=== PATIENT | female | born 1980 | race African-American/Black ===

== ENCOUNTER 2017-06-18 16:03 | Emergency (ER) | payer OTHER ==
[~2017-06-18] VITALS: Ht 177.8 cm; Wt 133.2 kg
[~2017-06-18 16:03] MED LIST: DSS100 PO; PERCT PO
[2017-06-18] MEDS ORDERED: METHOCARBAMOL 500 MG TABLET PO ONE (19:30)
[2017-06-18] MEDS ORDERED: ACETAMINOPHEN/CODEINE 300-30 MG TABLET PO ONE (19:30)
[2017-06-18 20:37] VITALS: BP 141/79
== END 2017-06-18 21:04 | disposition home or self-care (01) ==
LOC: EMS 16:06
DX: S29.012A Strain of muscle and tendon of back wall of thorax, initial encounter (principal); M79.641 Pain in right hand; I10 Essential (primary) hypertension; F17.210 Nicotine dependence, cigarettes, uncomplicated; Z91.011 Allergy to milk products; Z88.6 Allergy status to analgesic agent; Z88.8 Allergy status to other drugs, medicaments and biological substances; X58.XXXA Exposure to other specified factors, initial encounter; Y93.89 Activity, other specified; Y92.89 Other specified places as the place of occurrence of the external cause; Y99.8 Other external cause status
CPT/HCPCS: 99283

== ENCOUNTER 2018-10-20 18:37 | Emergency (ER) | payer MEDICAID, OTHER ==
[~2018-10-20] VITALS: Ht 177.8 cm; Wt 162.5 kg
[2018-10-20] MEDS ORDERED: PROPARACAINE HCL 0.5% 15 ML OPHTHALMIC SOLUTION OS ONE (20:15)
[2018-10-20 21:06] VITALS: BP 134/84
== END 2018-10-20 21:00 | disposition home or self-care (01) ==
LOC: EMS 18:39
DX: H10.89 Other conjunctivitis (principal); B99.9 Unspecified infectious disease; I10 Essential (primary) hypertension; F17.210 Nicotine dependence, cigarettes, uncomplicated; Z88.6 Allergy status to analgesic agent; Z79.899 Other long term (current) drug therapy; Z91.011 Allergy to milk products

== ENCOUNTER 2018-12-25 10:30 | Emergency (ER) | payer MEDICAID ==
[~2018-12-25] VITALS: Ht 177.8 cm; Wt 156.8 kg
[2018-12-25] MEDS ORDERED: ATEN50TA PO (10:37)
[2018-12-25 11:56] LABS: BASOPHILS % (AUTO) 0.3 % (0.0-2.0); EOSINOPHILS % (AUTO) 3.2 % (1.0-6.0); HEMATOCRIT 30.6 % (36-46); HEMOGLOBIN 9.6 g/dL (12.0-16.0); LYMPHOCYTES # (AUTO) 1.7 K/uL (1.0-4.8); LYMPHOCYTES % (AUTO) 24.5 % (22.0-44.0); MEAN CORPUSCULAR HEMOGLOBIN 23.8 pg (26.0-34.0); MEAN CORPUSCULAR HGB CONC 31.4 G/dL (31.0-37.0); MEAN CORPUSCULAR VOLUME 76 fL (80-100); MONOCYTES # (AUTO) 0.7 K/uL (0.1-1.0); MONOCYTES % (AUTO) 10.8 % (2.0-9.0); NEUTROPHILS # (AUTO) 4.2 K/uL (1.8-7.7); NEUTROPHILS % (AUTO) 61.2 % (40.0-70.0); PLATELET COUNT (AUTO) 318 K/uL (150-450); RED BLOOD CELL COUNT(AUTO) 4.04 MIL/uL (4.00-5.20); RED CELL DISTRIBUTION WIDTH 15.6 % (11.5-14.5)
[2018-12-25 12:16] LABS: ANION GAP 6 mmol/L (8-16); CALCIUM, TOTAL 8.9 mg/dL (8.8-10.5); CARBON DIOXIDE 29 mmol/L (22-29); CHLORIDE 105 mmol/L (98-107); CREATININE 0.92 mg/dL (0.60-1.30); GLOMERULAR FILTR. RATE CALC > 60 mL/min (>60); GLUCOSE,RANDOM 70 mg/dL (70-110); SODIUM SERUM 140 mmol/L (136-145); UREA NITROGEN, BLOOD 8 mg/dL (7-18)
[2018-12-25 12:49] VITALS: BP 148/87
== END 2018-12-25 11:49 | disposition home or self-care (01) ==
LOC: EMS 10:32
DX: R07.2 Precordial pain (principal); E66.9 Obesity, unspecified; F17.210 Nicotine dependence, cigarettes, uncomplicated; Z88.8 Allergy status to other drugs, medicaments and biological substances; Z88.6 Allergy status to analgesic agent; Z91.011 Allergy to milk products; Z68.42 Body mass index [BMI] 45.0-49.9, adult
CPT/HCPCS: 93005; 99406

== ENCOUNTER 2022-07-09 19:34 | Emergency (ER) | payer MEDICAID, OTHER ==
[~2022-07-09] VITALS: Ht 172.7 cm; Wt 175.0 kg
[~2022-07-09 19:34] MED LIST changes: +ATEN-72 PO; -DSS100 PO; -PERCT PO
[2022-07-09 19:57] VITALS: BP 143/79
[2022-07-09] MEDS ORDERED: MOXI3DRO27 OS (20:19)
== END 2022-07-09 21:21 | disposition home or self-care (01) ==
LOC: EMS 19:35
DX: H10.12 Acute atopic conjunctivitis, left eye (principal); I10 Essential (primary) hypertension; F17.210 Nicotine dependence, cigarettes, uncomplicated; Z91.011 Allergy to milk products; Z88.5 Allergy status to narcotic agent; Z88.8 Allergy status to other drugs, medicaments and biological substances
CPT/HCPCS: 99283; Z7502

== ENCOUNTER 2023-02-28 02:29 | Emergency (ER) | payer OTHER ==
[~2023-02-28] VITALS: Ht 175.3 cm; Wt 168.2 kg
[~2023-02-28 02:29] MED LIST changes: +MOXI3DRO27 OS
[2023-02-28 02:58] VITALS: TEMP 97.4
[2023-02-28] MEDS ORDERED: TOBRAMYCIN/DEXAMETHASONE 5 ML OPHTHALMIC SUSPENSION OU ONE (03:15)
[2023-02-28] MEDS ORDERED: PROPARACAINE HCL 0.5% 15 ML OPHTHALMIC SOLUTION OU ONE (03:15)
[2023-02-28 03:31] VITALS: BP 150/80; PULSE 82; RESP 18
== END 2023-02-28 03:34 | disposition home or self-care (01) ==
LOC: EMS 02:29
DX: H10.33 Unspecified acute conjunctivitis, bilateral (principal); I10 Essential (primary) hypertension; F17.210 Nicotine dependence, cigarettes, uncomplicated; Z91.011 Allergy to milk products; Z88.6 Allergy status to analgesic agent; Z88.8 Allergy status to other drugs, medicaments and biological substances
CPT/HCPCS: 99283

== ENCOUNTER 2023-09-10 07:13 | Day surgery (SDC) | payer OTHER ==
[~2023-09-10] VITALS: Ht 175.3 cm; Wt 174.1 kg
[~2023-09-10 07:13] MED LIST changes: +FERR-72 PO; -MOXI3DRO27 OS; +SODIUM CHLORIDE 0.9% 1,000 ML ONE
[2023-09-10] MEDS: SODIUM CHLORIDE 0.9% 1,000 ML IV ONE (08:09)
[2023-09-10] MEDS ORDERED: LIDOCAINE/PF 2% 5 ML VIAL IM ONE (12:00)
[2023-09-10] MEDS ORDERED: PROPOFOL 1% 20 ML VIAL IVP ONE (12:00)
== END 2023-09-10 11:00 | disposition home or self-care (01) ==
LOC: SURGERY 07:13
PROVIDERS: ATTEND Internal Medicine Gastroenterology
DX: K29.50 Unspecified chronic gastritis without bleeding (principal); B96.81 Helicobacter pylori [H. pylori] as the cause of diseases classified elsewhere; Z88.0 Allergy status to penicillin; Z90.49 Acquired absence of other specified parts of digestive tract; Z98.890 Other specified postprocedural states; Z79.899 Other long term (current) drug therapy; I10 Essential (primary) hypertension; Z82.49 Family history of ischemic heart disease and other diseases of the circulatory system; Z83.3 Family history of diabetes mellitus; Z68.43 Body mass index [BMI] 50.0-59.9, adult
CPT/HCPCS: 43239; 84703; 88305; 88312; 88313; J2704; J3490; J7030

== ENCOUNTER 2023-12-28 21:50 | Emergency (ER) | payer OTHER ==
[~2023-12-28] VITALS: Ht 175.3 cm; Wt 159.1 kg
[~2023-12-28 21:50] MED LIST changes: -SODIUM CHLORIDE 0.9% 1,000 ML ONE
[2023-12-28 21:55] VITALS: BP 130/50; PULSE 88; RESP 20; TEMP 98.7
== END 2023-12-29 01:48 | disposition left against medical advice (07) ==
LOC: EMS 21:50
DX: R11.10 Vomiting, unspecified (principal); Z53.21 Procedure and treatment not carried out due to patient leaving prior to being seen by health care provider

== ENCOUNTER 2024-06-25 06:15 | Emergency (ER) | payer OTHER ==
[~2024-06-25] VITALS: Ht 172.7 cm; Wt 125.0 kg
[~2024-06-25 06:15] MED LIST changes: +ALBU18HF12 IH; +AMLO5TAB66 PO; +BUTA-256 PO; +NYST15CR41 TP; +ONDA-104 PO
[2024-06-25 06:28] VITALS: BP 168/81; PULSE 78; RESP 17; TEMP 98.4; O2SAT 100
== END 2024-06-25 06:50 | disposition left against medical advice (07) ==
LOC: EMS 06:19
DX: M25.562 Pain in left knee (principal); Z53.21 Procedure and treatment not carried out due to patient leaving prior to being seen by health care provider